=== PATIENT | female | born 1955 | race Caucasian/White ===

== ENCOUNTER → 2016-12-26 | Outpatient (CLI) | payer OTHER ==
[~2016-12-26] MED LIST: CELEBREX200 MG PO; COLACE100 MG PO; GABAPENTIN100 MG PO; HYDROCODON-ACE1 EAC2 PO; VALIUM2 MG PO; ZESTORETIC 20/11 TAB PO
== END | disposition home or self-care (01) ==
LOC: PTH.S 11:05
DX: Z51.81 Encounter for therapeutic drug level monitoring (principal); Z79.899 Other long term (current) drug therapy

== ENCOUNTER → 2017-02-28 | Outpatient (CLI) | payer OTHER | END | disposition home or self-care (01) | LOC: PTH.S 02-03 16:15 | DX: Z00.00 Encounter for general adult medical examination without abnormal findings (principal) ==

== ENCOUNTER → 2017-03-15 | Outpatient (CLI) | payer OTHER | END | disposition home or self-care (01) | LOC: PTH.S 03-09 14:30 | DX: M62.81 Muscle weakness (generalized) (principal); M35.3 Polymyalgia rheumatica; R73.9 Hyperglycemia, unspecified ==

== ENCOUNTER → 2017-03-30 | Outpatient (CLI) | payer OTHER | END | disposition home or self-care (01) | LOC: EDT 03-28 14:45 | DX: E11.9 Type 2 diabetes mellitus without complications (principal); Z71.3 Dietary counseling and surveillance ==